=== PATIENT | female | born 1970 | race Two or more races ===

== ENCOUNTER 2016-10-16 14:37 | Emergency (ER) | payer OTHER ==
[~2016-10-16] VITALS: Ht 152.4 cm; Wt 63.7 kg
[2016-10-16] MEDS ORDERED: ALBUTEROL SULFATE 2.5 MG/3 ML NPPB ONE (15:00)
[2016-10-16] MEDS ORDERED: ALBUTEROL SULFATE 2.5 MG/3 ML ONE (15:16)
[2016-10-16 15:54] LABS: ASPARTATE AMINO TRANSFERASE 20 U/L (15-37); BLOOD UREA NITROGEN 11 mg/dL (7-18)
[2016-10-16 16:04] LABS: IS PT STATUS REG ER OR PRE ER? YES
[2016-10-16 17:00] VITALS: BP 136/85
[2016-10-16] MEDS ORDERED: ACETAMINOPHEN 325 MG TABLET PO ONE (17:00)
[2016-10-16] MEDS ORDERED: ACETAMINOPHEN 325 MG TABLET ONE (17:16)
== END 2016-10-16 17:38 | disposition home or self-care (01) ==
LOC: ED 17:25
DX: R07.89 Other chest pain (principal); R06.00 Dyspnea, unspecified; Z90.710 Acquired absence of both cervix and uterus
CPT/HCPCS: 36415; 71020; 80053; 84484; 85025; 93005; 94640; 99285; J7613